=== PATIENT | male | born 1970 | race African-American/Black ===

== ENCOUNTER 2022-08-13 09:20 | Emergency (ER) | payer MEDICARE, MEDICAID ==
[~2022-08-13] VITALS: Ht 170.2 cm; Wt 73.0 kg
[2022-08-13 09:22] VITALS: BP 130/84
[2022-08-13] MEDS ORDERED: IBUP-2028 PO (11:11)
[2022-08-13] MEDS ORDERED: KETOROLAC 60MG/2ML VIAL IM ONE (11:30)
== END 2022-08-13 12:21 | disposition home or self-care (01) ==
LOC: ER 09:20
DX: M25.462 Effusion, left knee (principal)
CPT/HCPCS: 73560; 73590; 96372; 99284; J1885; L1830